=== PATIENT | male | born 1975 | race Caucasian/White ===

== ENCOUNTER 2018-01-17 21:46 | Emergency (ER) | payer SELFPAY ==
--- NOTE | 2018-01-17 23:51 | ED Physician Chart ---
ED Chief Complaint/HPI - Patient Information Date Seen:: 01/17/18 Time Seen:: 23:50 Chief Complaint:: Headache, bilateral shoulder pain and low back pain History of Present Illness:: 43 yo homeless male was brought by ambulance to ER for evaluation of headache, bilateral shoulder pain and low back pain intermittently for 3 weeks, worsened for 5 days. Patient was discharged from [facility] today for seizure disorder with a Rx of Keppra 1000mg bid. Allergies:: Allergies Allergy/AdvReac Type Severity Reaction Status Date / Time No Known Allergies Allergy Verified 01/17/18 21:53 Vitals:: Vital Signs - 8 hr 01/17/18 01/17/18 21:50 22:51 Temp 98.2 F HR 105 94 RR 20 18 BP 135/80 107/67 O2 Sat % 94 95 ED Review of Systems - Review of Systems General/Constitutional: No fever, Weakness Skin: No rash Head: No headache Eyes: No pain ENT: No nasal drainage Neck: No neck pain Cardio Vascular: No chest pain Pulmonary: No SOB GI: No nausea, No vomiting Musculoskeletal: Bone or joint pain Neurological: Seizure ED Past Medical History - Past Medical History Past Medical History: HTN, DM, Seizures Social History: Non Smoker, Alcohol, No Drug Use ED Physical Exam - Physical Examination General/Constitutional: Awake, Alert Head: Atraumatic Eyes: PERRL Skin: No skin lesions ENMT: Nasal exam nl Neck: No nuchal rigidity Respiratory: Clear to Auscultation Cardio Vascular: RRR, No murmur, gallop, rubs, NL S1 S2 GI: No tenderness/rebounding/guarding Extremities: normal strength in all extremities Neuro/Psych: No focal deficits ED Labs/Radiology/EKG Results - Lab Results Results: Laboratory Last Values WBC 6.5 Th/cmm (4.8-10.8) 01/17/18 12:15 RBC 4.96 Mil/cmm (4.30-5.70) 01/17/18 12:15 Hgb 15.3 gm/dL (12-16) 01/17/18 12:15 Hct 45.4 % (41.0-60) 01/17/18 12:15 MCV 91.5 fl (80-99) 01/17/18 12:15 MCH 30.8 pg (26.0-30.0) H 01/17/18 12:15 MCHC Differential 33.6 pg (28.0-36.0) 01/17/18 12:15 RDW 14.2 % (11.5-20.0) 01/17/18 12:15 Plt Count 119 Th/cmm (150-400) L 01/17/18 12:15 MPV 8.8 fl 01/17/18 12:15 Neutrophils % 59.6 % (40.0-80.0) 01/17/18 12:15 Lymphocytes % 31.4 % (20.0-50.0) 01/17/18 12:15 Monocytes % 6.7 % (2.0-10.0) 01/17/18 12:15 Eosinophils % 1.4 % (0.0-5.0) 01/17/18 12:15 Basophils % 0.9 % (0.0-2.0) 01/17/18 12:15 Sodium 140 mEq/L (136-145) 01/17/18 12:15 Potassium 3.7 mEq/L (3.5-5.1) 01/17/18 12:15 Chloride 110 mEq/L (98-107) H 01/17/18 12:15 Carbon Dioxide 20.3 mEq/L (21.0-31.0) L 01/17/18 12:15 Anion Gap 13.4 (7.0-16.0) 01/17/18 12:15 BUN 7 mg/dL (7-25) 01/17/18 12:15 Creatinine 0.6 mg/dL (0.7-1.3) L 01/17/18 12:15 Est GFR ( Amer) > 60.0 ml/min (>90) 01/17/18 12:15 Est GFR (Non-Af Amer) > 60.0 ml/min 01/17/18 12:15 BUN/Creatinine Ratio 11.7 01/17/18 12:15 Glucose 91 mg/dL (70-105) 01/17/18 12:15 Calcium 9.2 mg/dL (8.6-10.3) 01/17/18 12:15 Total Bilirubin 0.7 mg/dL (0.3-1.0) 01/17/18 12:15 AST 27 U/L (13-39) 01/17/18 12:15 ALT 21 U/L (7-52) 01/17/18 12:15 Alkaline Phosphatase 97 U/L (34-104) 01/17/18 12:15 Total Protein 8.1 gm/dL (6.0-8.3) 01/17/18 12:15 Albumin 4.3 gm/dL (4.2-5.5) 01/17/18 12:15 Globulin 3.8 gm/dL 01/17/18 12:15 Albumin/Globulin Ratio 1.1 (1.0-1.8) 01/17/18 12:15 Urine Source RANDOM 01/18/18 00:15 Urine Color YELLOW 01/18/18 00:15 Urine Clarity CLEAR (CLEAR) 01/18/18 00:15 Urine pH 6.0 (4.6 - 8.0) 01/18/18 00:15 Ur Specific [place] <= 1.005 (1.005-1.030) 01/18/18 00:15 Urine Protein NEGATIVE mg/dL (NEGATIVE) 01/18/18 00:15 Urine Glucose (UA) NEGATIVE mg/dL (NEGATIVE) 01/18/18 00:15 Urine Ketones NEGATIVE mg/dL (NEGATIVE) 01/18/18 00:15 Urine Blood TRACE (NEGATIVE) 01/18/18 00:15 Urine Nitrate NEGATIVE (NEGATIVE) 01/18/18 00:15 Urine Bilirubin NEGATIVE (NEGATIVE) 01/18/18 00:15 Urine Urobilinogen 0.2 E.U./dL (0.2 - 1.0) 01/18/18 00:15 Ur Leukocyte Esterase NEGATIVE (NEGATIVE) 01/18/18 00:15 Urine RBC 0-2 /hpf (0-5) H 01/18/18 00:15 Urine WBC 0-2 /hpf (0-5) 01/18/18 00:15 Ur Epithelial Cells OCCASIONAL /lpf (FEW) 01/18/18 00:15 Urine Bacteria OCCASIONAL /hpf (NONE SEEN) 01/18/18 00:15 Urine Opiates Screen NEGATIVE (NEGATIVE) 01/18/18 00:15 Urine Methadone Screen NEGATIVE (NEGATIVE) 18 00:15 Ur Barbiturates Screen NEGATIVE (NEGATIVE) 18 00:15 Ur Tricyclics Screen NEGATIVE (NEGATIVE) 01/18/18 00:15 Ur Phencyclidine Scrn NEGATIVE (NEGATIVE) 01/18/18 00:15 Amphetamines Screen NEGATIVE (NEGATIVE) 01/18/18 00:15 U Methamphetamines Scrn NEGATIVE (NEGATIVE) 01/18/18 00:15 U Benzodiazepines Scrn NEGATIVE (NEGATIVE) 01/18/18 00:15 U Cocaine Metab Screen NEGATIVE (NEGATIVE) 01/18/18 00:15 U Cannabinoids Screen NEGATIVE (NEGATIVE) 01/18/18 00:15 Ethyl Alcohol 181 mg/dL (0-10) H 01/17/18 12:15 - Radiology Results Results: Right shoulder X ray: no acute osseous abnormality Left shoulder X ray: no acute osseous abnormality L-spine X ray: no acute fracture. Mild degenerative changes ED Assessment - Assessment General Assessment: Seizure Alcohol abuse Headache Bilateral shoulder pain Low back pain Assessment/Comments:: CBC, CMP, UA, urine drug screen Bilateral shoulder X ray L-spine X ray Keppra 1000mg PO NS 1L IV bolus D/c home F/u PCP or return to ER if symptoms worsen ED Septic Shock - . Is Septic Shock (SBP<90, OR Lactate>4 mmol\L) present?: No - <6hrs of presentation: Vital Signs: Vital Signs - 8 hr 01/17/18 01/17/18 21:50 22:51 Temp 98.2 F HR 105 94 RR 20 18 BP 135/80 107/67 O2 Sat % 94 95 ED Reassessment (Disposition) - Reassessment Reassessment Condition:: Improved - Patient Disposition Discharge/Transfer:: Home
[2018-01-18 00:25] LABS: % BASOPHILS 0.9 % (0.0-2.0); % EOSINOPHILS 1.4 % (0.0-5.0); % LYMPHOCYTES 31.4 % (20.0-50.0); % MONOCYTES 6.7 % (2.0-10.0); % NEUTROPHILS 59.6 % (40.0-80.0); BASOPHILE ABSOLUTE 0.1 Th/cumm (0-0.2); EOSINOPHILE ABSOLUTE 0.1 Th/cmm (0.1-0.4); HEMATOCRIT 45.4 % (41.0-60); HEMOGLOBIN 15.3 gm/dL (12-16); MEAN CELL VOLUME 91.5 fl (80-99); MEAN CORPUSCULAR HEMOGLOBIN 30.8 pg (26.0-30.0); MEAN CORPUSCULAR HGB CONC 33.6 pg (28.0-36.0); MEAN PLATELET VOLUME 8.8 fl; MONOCYTE ABSOLUTE 0.4 Th/cmm (0.3-1.0); NEUTROPHILE ABSOLUTE 3.9 Th/cmm (1.8-8.0); PLATELET COUNT 119 Th/cmm (150-400); RED BLOOD COUNT 4.96 Mil/cmm (4.30-5.70); RED CELL DISTRIBUTION WIDTH 14.2 % (11.5-20.0); WHITE BLOOD COUNT 6.5 Th/cmm (4.8-10.8)
[2018-01-18 00:38] LABS: URINE MICROSCOPIC INDICATED? YES; URINE SOURCE RANDOM
[2018-01-18 00:40] LABS: URINE BILIRUBIN NEGATIVE (NEGATIVE); URINE BLOOD TRACE (NEGATIVE); URINE GLUCOSE (UA) NEGATIVE (NEGATIVE); URINE KETONE NEGATIVE (NEGATIVE); URINE LEUKOCYTE ESTERASE NEGATIVE (NEGATIVE); URINE NITRATE NEGATIVE (NEGATIVE); URINE PROTEIN NEGATIVE (NEGATIVE); URINE UROBILINOGEN 0.2 E.U./dL (0.2 - 1.0)
[2018-01-18] MEDS ORDERED: Sodium Chloride 0.9% 1,000 ML IV ONE (00:40)
[2018-01-18 00:46] LABS: URINE CLARITY CLEAR (CLEAR); URINE COLOR YELLOW
[2018-01-18 00:47] LABS: URINE BACTERIA OCCASIONAL /hpf (NONE SEEN); URINE EPITHELIAL CELLS OCCASIONAL /lpf (FEW); URINE RBC 0-2 /hpf (0-5); URINE WBC 0-2 /hpf (0-5)
[2018-01-18 00:54] LABS: AMPHETAMINE URINE NEGATIVE (NEGATIVE); BARBITURATES URINE NEGATIVE (NEGATIVE); BENZODIAZEPINES QUAL URINE NEGATIVE (NEGATIVE); CANNABINOID THC NEGATIVE (NEGATIVE); COCAINE METABOLITE QUAL URINE NEGATIVE (NEGATIVE); METHADONE URINE NEGATIVE (NEGATIVE); METHAMPHETAMINES QUAL URINE NEGATIVE (NEGATIVE); OPIATES (MORPHINE) QUAL. URINE NEGATIVE (NEGATIVE); PHENCYCLIDINE (PCP) URINE NEGATIVE (NEGATIVE); TRICYCLICS (TCA) QUAL. URINE NEGATIVE (NEGATIVE)
[2018-01-18 00:58] LABS: ALB/GLOB RATIO 1.1 (1.0-1.8); ALBUMIN 4.3 gm/dL (4.2-5.5); ALKALINE PHOSPHATASE 97 U/L (34-104); ANION GAP 13.4 (7.0-16.0); BILIRUBIN,TOTAL 0.7 mg/dL (0.3-1.0); BUN - UREA NITROGEN 7 mg/dL (7-25); CALCIUM SERUM 9.2 mg/dL (8.6-10.3); CARBON DIOXIDE 20.3 mEq/L (21.0-31.0); CHLORIDE 110 mEq/L (98-107); CREATININE - SERUM 0.6 mg/dL (0.7-1.3); GFR AFRICAN-AMERICAN > 60.0 ml/min (>90); GFR NON AFRICAN-AMERICAN > 60.0 ml/min; GLUCOSE 91 mg/dL (70-105); POTASSIUM SERUM 3.7 mEq/L (3.5-5.1); SGOT 27 U/L (13-39); SGPT/ALT 21 U/L (7-52); SODIUM SERUM 140 mEq/L (136-145); TOTAL PROTEIN,SERUM 8.1 gm/dL (6.0-8.3)
--- NOTE | 2018-01-18 08:17 | Diagnostic Imaging Report ---
Left shoulder 2 views Indication: pain Comparison: Right shoulder x-ray the same day Findings: The suggestion of osteopenia with faint demineralization of the humerus. Mild degenerative changes are noted greatest at the AC joint. No acute fracture or dislocation. Impression: No acute osseous abnormality. Faint demineralization of the humerus. The significance of this finding should be correlated clinically. This may be related to osteopenia. Other etiologies such as multiple myeloma is considered less likely but cannot be excluded. Again clinical correlation is recommended. In the setting of trauma, if clinical symptoms persist and there is continued concern for an occult fracture, follow up exams in 5-7 days is suggested.
--- NOTE | 2018-01-18 08:21 | Diagnostic Imaging Report ---
Right shoulder 2 views Indication: pain Comparison: Left shoulder x-ray the same day Findings: The suggestion of osteopenia with faint demineralization of the humerus. Mild degenerative changes are noted greatest at the AC joint. Slight irregularity of the right humeral head/neck junction is probably related to osteophytic spurring. Otherwise no evidence of acute fracture or dislocation. Impression: Slight irregularity right humeral head/neck junction is probably related to osteophytic spurring. Please correlate clinically. Otherwise no evidence of an acute fracture. Faint demineralization of the humerus. The significance of this finding should be correlated clinically. This may be related to osteopenia. Other etiologies such as multiple myeloma is considered less likely but cannot be excluded. Again clinical correlation is recommended. In the setting of trauma, if clinical symptoms persist and there is continued concern for an occult fracture, follow up exams in 5-7 days is recommended.
--- NOTE | 2018-01-18 08:30 | Diagnostic Imaging Report ---
Lumbar spine 3 views Indication: Low back pain Comparison: none Findings: There is mild rightward convex to the of the lumbar spine. No acute compression fracture or subluxation. Mild degenerative changes are seen with multilevel mild disc space loss of height greatest at L4/L5. Mild multilevel marginal osteophytic spurring is also noted. The SI joints are preserved. Impression: No evidence of an acute compression fracture or subluxation Mild joint degenerative changes. Possible minimal spinal scoliosis. In the setting of trauma, if clinical symptoms persist and there is continued concern for an occult fracture, follow up exams in 5-7 days is suggested.
== END 2018-01-18 06:58 | disposition home or self-care (01) ==
LOC: ER 21:46
DX: G40.909 Epilepsy, unspecified, not intractable, without status epilepticus (principal); F10.10 Alcohol abuse, uncomplicated; M25.512 Pain in left shoulder; M25.511 Pain in right shoulder; R51 Headache; M54.5 Low back pain; I10 Essential (primary) hypertension; E11.9 Type 2 diabetes mellitus without complications; Z59.0 Homelessness
CPT/HCPCS: 36415-UA; 72110-TC; 73030-TC-LT; 73030-TC-RT; 80053-TC; 80307; 80320-TC; 81001-TC; 85025-TC; J7030; Z7610